=== PATIENT | male | born 1960 | race Caucasian/White ===

== ENCOUNTER 2016-06-25 05:37 | Outpatient (CLI) | payer OTHER ==
[~2016-06-25] VITALS: Ht 175.3 cm; Wt 72.6 kg
[~2016-06-25 05:37] MED LIST: LISI5TAB PO; NAPR-243 PO
[2016-06-25] MEDS ORDERED: NAPR220T66 PO (12:40)
[2016-06-25] MEDS ORDERED: MULT-1030 PO (12:40)
[2016-06-25] MEDS ORDERED: OMG1KC PO (12:40)
== END 2016-06-25 12:42 ==
LOC: PREOP 05:37
PROVIDERS: ATTEND Surgery
DX: Z01.818 Encounter for other preprocedural examination (principal); Z12.11 Encounter for screening for malignant neoplasm of colon

== ENCOUNTER → 2020-04-04 14:30 | Day surgery (SDC) | payer OTHER ==
[2016-06-29 08:42] VITALS: BP 136/89
--- NOTE | 2016-06-29 08:43 | Progress Note-Pre Operative ---
Pre-Operative Progress Note H&P Reviewed The H&P was reviewed, patient examined and no changes noted. Date H&P Reviewed: June 29, 2016 Time H&P Reviewed: 08:43 Pre-Operative Diagnosis: screening colonoscopy LASHA AL DO June 29, 2016 08:43
--- NOTE | 2016-06-29 09:37 | Progress Note-Post Operative ---
Post-Operative Progess Note Surgeon (s)/Drum Tender (s) Surgeon LASHA AL DO Drum Tender: na Pre-Operative Diagnosis screening colonoscopy Post-Operative Diagnosis ascending colon polyp, sigmoid polyp, diverticulosis Post-Op Procedure Note Date of Procedure: June 29, 2016 Name of Procedure Performed: colonoscopy hot bx polypectomy x 2 Description of the Procedure: colonoscopy hot bx polypectomy x 2 Findings of the Procedure polyps and diverticulosis Anesthesia Type per bicycle repair technician Estimated blood loss (mL): none Specimen(s) collected/removed polyp x 2 LASHA AL DO June 29, 2016 09:37
--- NOTE | 2016-06-29 09:43 | Discharge Inst-Simple/Standard ---
Discharge Inst-Standard Patient Instructions/Follow Up Plan of Care/Instructions/FU: High fiber diet Will need repeat colonoscopy in 5 years Follow up with Dr. Bell in clinic in 2 weeks. Hold naprosyn for 3 more days Activity as Tolerated: Yes Discharge Diet: No Restrictions VENESSA TAI APRN June 29, 2016 09:43
[2016-06-29 10:00] VITALS: BP 118/58
[2016-06-29 10:30] VITALS: BP 129/83
[2016-06-29 10:37] VITALS: BP 129/83
--- NOTE | 2016-06-29 11:42 | OPERATIVE REPORT ---
DATE OF SERVICE: 06/29/2016 PREOPERATIVE DIAGNOSIS: Screening colonoscopy. POSTOPERATIVE DIAGNOSES: Colon polyps x2, ascending colon and sigmoid colon, and diverticulosis. PROCEDURE: Colonoscopy with hot biopsy and polypectomy x2. SURGEON: Lasha Bell DO ANESTHESIA: Per VICE PRESIDENT OF NURSING. ESTIMATED BLOOD LOSS: None. COMPLICATIONS: None. INDICATIONS: The patient is a 56-year-old male due for screening colonoscopy. He understands risks and benefits of procedure and wished to proceed with procedure. Consent was signed and in chart. PROCEDURE IN DETAIL: The patient was taken to the endoscopy suite, placed in the left lateral recumbent position. A timeout was performed. Digital rectal exam was performed. There were no palpable polyps, masses or ulcerations. The scope was inserted into the rectum and advanced all the way to the cecum with minimal difficulty. Prep was adequate. The scope was slowly retracted back. There were no polyps, masses or ulcerations in the cecum. In the ascending colon, a small sessile polyp was present, for which hot biopsy and polypectomy was performed. The scope was continuously slowly retracted back. There were no polyps, masses or ulcerations within the transverse colon, descending colon. Within the sigmoid colon, there is a small amount of diverticulosis present. There is also a very small polyp in the distal portion of the sigmoid colon, for which hot biopsy and polypectomy was performed. The scope was continuously retracted back into the rectum, where it was also retroflexed, noting no other pathology. The scope was returned to its normal position and slowly withdrawn until completely removed. The patient tolerated the procedure well without any complications and taken to the recovery room in stable condition. RECOMMENDATIONS: The patient will need repeat colonoscopy in 5 years. He also has some diverticulosis, for which we recommend high-fiber diet. If he has any problems prior to his next scheduled colonoscopy, he should be reevaluated at that time. Job ID: [id number] DocumentID: [id number] Dictated Date: 06/29/2016 09:37:55 Advanced Practice Professional Date: 06/29/2016 11:41:23 Dictated By: LASHA BELL DO
[~2020-04-04] VITALS: Ht 175.3 cm; Wt 72.6 kg
[~2020-04-04 14:30] MED LIST changes: +MIDAZOLAM 2 MG/2 ML (VERSED) VIAL ONE; +MULT-1030 PO; +NAPR220T66 PO; +NS IV 1000 ML 1,000 ML IV STA; +NS IV 1000 ML 1,000 ML ONE; +OMG1KC PO; +PROPOFOL INJECTION 50 ML IV ONE
== END | disposition home or self-care (01) ==
LOC: ENDO 06-29 08:13
PROVIDERS: ATTEND Surgery
DX: Z12.11 Encounter for screening for malignant neoplasm of colon (principal); D12.2 Benign neoplasm of ascending colon; D12.5 Benign neoplasm of sigmoid colon; K57.30 Diverticulosis of large intestine without perforation or abscess without bleeding; I10 Essential (primary) hypertension; F17.210 Nicotine dependence, cigarettes, uncomplicated; Z79.899 Other long term (current) drug therapy
CPT/HCPCS: 88305

== ENCOUNTER 2022-06-09 05:40 | Outpatient (CLI) | payer OTHER ==
[~2022-06-09] VITALS: Ht 175.3 cm; Wt 75.3 kg
[~2022-06-09 05:40] MED LIST changes: -MIDAZOLAM 2 MG/2 ML (VERSED) VIAL ONE; -NS IV 1000 ML 1,000 ML IV STA; -NS IV 1000 ML 1,000 ML ONE; -PROPOFOL INJECTION 50 ML IV ONE
== END 2022-06-09 14:25 | disposition home or self-care (01) ==
LOC: PREOP 05:40
PROVIDERS: ATTEND Surgery
DX: Z01.818 Encounter for other preprocedural examination (principal)